=== PATIENT | female | born 1950 | race Hispanic/Latino ===

== ENCOUNTER 2022-06-23 17:16 | Emergency (ER) | payer MEDICARE, OTHER ==
[~2022-06-23] VITALS: Ht 157.5 cm; Wt 74.9 kg
[2022-06-23] MEDS ORDERED: METFORMIN HCL500 MG PO (17:38)
[2022-06-23] MEDS ORDERED: ARICEPT10 MG PO (17:38)
[2022-06-23] MEDS ORDERED: LEXAPRO20 MG PO (17:38)
[2022-06-23] MEDS ORDERED: ATORVASTATIN CA20 MG PO (17:38)
[2022-06-23] MEDS ORDERED: ACETAMINOPHEN 325 MG TAB PO ONE (17:45)
[2022-06-23] MEDS ORDERED: ACETAMINOPHEN 325 MG TAB ONE (17:52)
[2022-06-23] MEDS ORDERED: ACETAMINOPHEN500 MG PO (17:58)
[2022-06-23] MEDS ORDERED: IBUPROFEN200 MG PO (17:58)
== END 2022-06-23 19:30 | disposition home or self-care (01) ==
LOC: FSED 17:25
DX: S05.11XA Contusion of eyeball and orbital tissues, right eye, initial encounter (principal); S80.02XA Contusion of left knee, initial encounter; S80.01XA Contusion of right knee, initial encounter; W01.0XXA Fall on same level from slipping, tripping and stumbling without subsequent striking against object, initial encounter; Y93.01 Activity, walking, marching and hiking; Y92.89 Other specified places as the place of occurrence of the external cause; G30.9 Alzheimer's disease, unspecified; F02.80 Dementia in other diseases classified elsewhere, unspecified severity, without behavioral disturbance, psychotic disturbance, mood disturbance, and anxiety; E11.9 Type 2 diabetes mellitus without complications; E78.5 Hyperlipidemia, unspecified; F32.A Depression, unspecified
CPT/HCPCS: 70450; 70486; 99283